=== PATIENT | female | born 1960 | race Caucasian/White ===

== ENCOUNTER 2023-02-28 12:18 | Outpatient (CLI) | payer OTHER ==
[~2023-02-28 12:18] MED LIST: GADOBUTROL 7.5 MMOL/7.5 ML VIAL ONE
[2023-02-28] MEDS ORDERED: GADOBUTROL 7.5 MMOL/7.5 ML VIAL IVP ONE (13:33)
--- NOTE | 2023-02-28 18:21 | MRI Report ---
PROCEDURE: BRAIN W/WO INDICATIONS: FAMILY HIST OF BRAIN ANUERYSM CONTRAST: GADAVIST 6.7 ML TECHNIQUE: Noncontrast axial T1 spin echo, axial T2 fast spin echo, sagittal and axial FLAIR, coronal T2 fast sp in echo, axial gradient echo, axial diffusion and ADC through the brain. After the administration of contrast, axial and coronal T1 spin echo with fat saturation through the brain. COMPARISON: None. FINDINGS: Image quality: Excellent. CSF spaces: Basal cisterns are patent. No extra-axial fluid collections. Ventricles are normal in size and shape. Brain: No midline shift. No intracranial bleeds or masses. No abnormal intracranial enhancement. There is cerebral volume loss for age. There is periventricular white matter chronic small vessel is chemic change. The brainstem appears normal. Diffusion-weighted images demonstrate no acute ischemi c insults. No chronic ischemic insults. In this patient with this given history, scrutiny is given to the flow voids and 2 arteries postcontr ast images. To the limits of this nonangiogram study, no aneurysms are detected. Skull and face: Calvarial marrow is normal in signal. Orbits appear normal. Sinuses: Sinuses and mastoids appear clear. IMPRESSION: The limits of this standard protocol nonangiogram study, no adalid findings of intracrani al aneurysm can be seen. No findings of hemorrhage are seen. Please consider a dedicated follow-up MR angiogram or CT angiogram for further evaluation in this pat ient with this given history. Reviewed by: Hudson Tesfaye MD on 02/28/2023 5:19 PM BETSY Approved by: Hudson Tesfaye MD on 02/28/2023 5:19 PM BETSY Station ID: [id number]
== END 2023-02-28 12:19 | disposition home or self-care (01) ==
LOC: DI 12:18
PROVIDERS: ATTEND Nurse Practitioner Family
DX: Z82.49 Family history of ischemic heart disease and other diseases of the circulatory system (principal)
CPT/HCPCS: 70553; A9585